=== PATIENT | male | born 1950 | race Caucasian/White ===

== ENCOUNTER 2019-06-29 06:36 | Day surgery (SDC) | payer MEDICARE, BC ==
[2019-06-29] MEDS ORDERED: Propofol 200 MG/20 ML SDV IV ONE (06:37)
[2019-06-29] MEDS ORDERED: Lidocaine 1% PF 2 ML SDV INJECT ONE (06:37)
[2019-06-29] MEDS ORDERED: Lactated Ringers 1,000 ML IV SCH (06:45)
--- NOTE | 2019-06-29 08:17 | PCM.OPNOTE ---
- General Post-Op/Procedure Note Date of Surgery/Procedure: 06/29/19 Operative Procedure(s): c scope with cold loop snare biopsy Findings: ascending colon polyp sigmoid diverticulosis Pre Op Diagnosis: hematochezia Post-Op Diagnosis: diveritucolosis. colon polyp Anesthesia Technique: MAC Primary Surgeon: Vadim Stack Anesthesia Provider: Reji Walsl Pathology: colon polyp Complications: None Condition: Good Free Text/Narrative:: see dictation
--- NOTE | 2019-06-29 14:10 | OR ---
DATE OF OPERATION: 06/29/2019 SURGEON: Vadim Stack MD PROCEDURE PERFORMED: Colonoscopy with cold loop snare biopsy. PREOPERATIVE DIAGNOSIS: Need for colon cancer screening. POSTOPERATIVE DIAGNOSES: Ascending colon polyp and sigmoid diverticulosis. INDICATIONS FOR PROCEDURE: This is a 69-year-old white male, who was referred for his screening colonoscopy. He was offered and accepted same. DESCRIPTION OF OPERATION: After an excellent IV sedation was administered, digital rectal exam was performed. No marked abnormality was noted. Flexible colonoscope was inserted and advanced to the cecum. Prep was excellent. Following findings were noted. Ascending colon, just distal to the cecum, small polypoid lesion, biopsied and retrieved with cold loop snare. Transverse colon, unremarkable. Descending colon, unremarkable. Sigmoid, occasional diverticula. Rectum and anus, unremarkable. Results will be sent to the patient by letter. He tolerated the procedure well and was taken back to his room in good condition. /[id number] /[email or web address]
== END 2019-06-29 09:05 | disposition home or self-care (01) ==
LOC: FB.SDS 06:36
PROVIDERS: ATTEND Surgery
DX: D12.2 Benign neoplasm of ascending colon (principal); K57.31 Diverticulosis of large intestine without perforation or abscess with bleeding; Z88.0 Allergy status to penicillin; Z79.899 Other long term (current) drug therapy
CPT/HCPCS: 45385; 88305; J2001; J2704; J7120; 00812-QZ